=== PATIENT | male | born 1925 | race Caucasian/White ===

== ENCOUNTER 2017-01-25 23:11 | Inpatient (IN) | payer MEDICARE ==
[~2017-01-25] VITALS: Ht 180.3 cm; Wt 102.1 kg
--- NOTE | ~2017-01-25 | CN ---
PATIENT NAME:ROBYN CASAS MEDICAL RECORD: [id number] : [birth year] LOCATION:[facility] ADMIT DATE: 01/26/17 ACCOUNT: [id number] CONSULTING PHYSICIAN: LALITO GILMORE MD REFERRING PHYSICIAN: MARTHA LOU M.D. DATE OF CONSULTATION: 01/26/2017 CONSULT REQUESTING PHYSICIAN: Martha Lou MD. REASON FOR CONSULTATION: Pneumonia, acute mental status changes. HISTORY OF PRESENT ILLNESS: Mr. Casas is an 89-year-old gentleman who was admitted from the long-term with acute mental status changes. On evaluation in the ER, he was found that he has an infiltrate in the left lower lobe and there were also significant leukocytosis. Also, a presumptive diagnosis of urinary tract infection was made. The patient is coughing with white yellow color sputum product He denied any fever or chills, no night sweats. REVIEW OF SYSTEMS: Mainly in the history of present illness. The patient is confused. PAST MEDICAL HISTORY: 1. Sick sinus syndrome, status post pacemaker placement. 2. Coronary artery disease. 3. Hypercholesterolemia. 4. Chronic pain. 5. Peptic ulcer disease. PAST SURGICAL HISTORY: 1. He had a CABG. 2. Status post pacemaker placement. ALLERGIES: SULFA. PRESENT MEDICATIONS: [employer] was reviewed. PERSONAL AND SOCIAL HISTORY: The patient is an ex-smoker, nondrinker. FAMILY HISTORY: Significant for cardiovascular disease. PHYSICAL EXAMINATION: GENERAL: Now, the patient is lying comfortably. He is not in acute distress. VITAL SIGNS: The blood pressure is 129/65, pulse is 69, respiration is 18, temperature 97.3, SPO2 is 99% on 2 liters nasal cannula. HEENT: Conjunctivae are pink. Sclerae nonicteric. NECK: Supple. No JVD. CHEST: Left basal crackles. No wheezing. HEART: Rhythm regular, normal sound, no murmur. ABDOMEN: Soft. Bowel sounds present. No hepatosplenomegaly. RECTAL: Deferred. EXTREMITIES: No cyanosis, no clubbing. There is no pedal edema. SKIN: Warm, normal turgor. CENTRAL NERVOUS SYSTEM: The patient is awake and alert, but the patient is confused. There is no obvious cranial nerve abnormality. He is a bit hard of hearing. CONSULT REPORT [id number] CEDRIC,ROBYN F CHEST RADIOGRAPH: There is left basilar infiltrate. LABORATORY DATA: CBC: The WBC is 11.9, hemoglobin 12, hematocrit 38.1, platelet count 209. Chemistry: Sodium 142, potassium 4.1, BUN is 17, creatinine 1.1. IMPRESSION: 1. Pneumonia, left lower lobe, most possible hospital-acquired pneumonia, Gram-negative rods. The patient is a long-term resident. 2. Chronic hypoxic respiratory failure. 3. Acute mental status changes secondary to metabolic encephalopathy secondary to pneumonia, possible urinary tract infection. 4. History of sick sinus syndrome, status post pacemaker placement. 5. Leukocytosis. 6. Possible urinary tract infection. RECOMMENDATION: 1. Check the UA for culture and sensitivity, start him on Levaquin and cefepime to cover for Gram-negative rods and atypical. 2. Follow up labs and chest radiograph in the morning. 3. Mucinex DM. 4. Acapella q.[address] Lou, once again thank you for involving me in the care of Mr. Casas. TRANSINT:[id number] Voice Confirmation ID: [id number] DOCUMENT ID: [id number] LALITO GILMORE MD CC: MARTHA LOU M.D. [id number] DICTATION DATE: 01/26/171656 MULCHER OPERATOR: 01/27/17 0127 ADM IN [facility] [address] [id number]
[~2017-01-25 23:11] MED LIST: ALEVE220 MG PO; ASPIRIN EC81 M1 PO; BUSPAR10 MG PO; BUSPIRONE; COREG6.25 MG PO; DETROL1 MG PO; K-DUR20 MEQ PO; NEURONTIN 300300 MG PO; NEURONTIN600 MG PO; PEPCID20 MG PO; RESTASIS EYE DR30 EA EACH EYE; TRAZODONE HCL50 MG PO; ULTRAM50 MG PO; ZOCOR40 MG PO; ZOFRAN4 MG PO
[2017-01-25 23:48] LABS: BASOPHILS 0.2 % (0-2); EOSINOPHILS 1.2 % (0-7); HEMATOCRIT 38.1 % (42.0-54.0); IMMATURE GRANULOCYTES 0.3 % (0-5); LYMPHOCYTES 9.9 % (15-50); MCH 28.8 pg (26.0-34.0); MCHC 31.5 g/dL (31.0-37.0); MCV 91.4 fL (80.0-100.0); MEAN PLATELET VOLUME 10.6 fL (7.4-10.4); MONOCYTES 11.4 % (2-11); RBC 4.17 10x6/uL (4.20-6.10); RDW 14.7 % (11.5-14.5); WBC 11.8 10x3/uL (4.8-10.8)
[2017-01-25 23:49] LABS: PLATELET COUNT 209 10x3/uL (130-400)
[2017-01-26 00:01] LABS: ALBUMIN 3.1 g/dL (3.4-5.0); BILIRUBIN - TOTAL 0.37 mg/dL (0.2-1.3); CALCIUM 9.2 mg/dL (8.5-10.1); CARBON DIOXIDE 30.1 mmol/L (21.0-32.0); CREATININE - SERUM 1.1 mg/dL (0.6-1.3); POTASSIUM - SERUM 4.1 mmol/L (3.5-5.1); PROTEIN - SERUM 7.8 g/dL (6.4-8.2)
[2017-01-26 04:00] VITALS: BP 124/56
[2017-01-26 05:34] VITALS: BP 124/56; BMI 31.4
--- NOTE | 2017-01-26 08:03 | NUR ---
PT AOX4 RESP EVEN AND NONLABORED SRX2 CALL LIGHT IN REACH BED AT LOWEST SETTING IV TO LEFT FOREARM PATENT AT THIS TIME WILL CONTINUE TO MONITOR
[2017-01-26 08:31] VITALS: BP 129/65
[2017-01-26 09:52] LABS: BASOPHILS 0.2 % (0-2); EOSINOPHILS 1.8 % (0-7); HEMATOCRIT 35.4 % (42.0-54.0); IMMATURE GRANULOCYTES 0.2 % (0-5); LYMPHOCYTES 9.2 % (15-50); MCH 28.4 pg (26.0-34.0); MCHC 31.1 g/dL (31.0-37.0); MCV 91.5 fL (80.0-100.0); MONOCYTES 9.9 % (2-11); NEUTROPHILS 78.7 % (40-80); PLATELET COUNT 172 10x3/uL (130-400); RBC 3.87 10x6/uL (4.20-6.10); RDW 14.5 % (11.5-14.5)
[2017-01-26 10:02] LABS: WBC 8.2 10x3/uL (4.8-10.8)
[2017-01-26 15:20] VITALS: Ht 180.3 cm; Wt 102.1 kg
[2017-01-26 15:25] VITALS: BP 126/55
--- NOTE | 2017-01-26 19:15 | NUR ---
RECIEVED SHIFT REPORT. PT IS LYING IN BED. PT IS WITH INTERMITTENT CONFUSION. O2 @ 2 PER NASAL CANNULA. IV IS PATENT AND SALINE LOC AT THIS TIME. PT STATES PAIN IS 7/10. PT REQUIRES MINIMAL ASSISTANCE TURNING IN BED FOR COMFORT AND SKIN CARE. NO NEEDS ARE VERBALIZED AT THIS TIME. WILL CONTINUE TO MONITOR. SIDE RAILS ARE UP X 2. BED IS IN LOWEST POSITION. BED ALARM IS ON FOR SAFETY. CALL LIGHT IS WITHIN REACH.
[2017-01-26 20:26] VITALS: BP 135/73
--- NOTE | 2017-01-26 20:59 | NUR ---
SHIFT ASSESSMENT COMPLETED. NIGHT MEDS GIVEN WITH NO PROBLEMS. NO NEEDS ARE VOICED. WILL MONITOR. SIDE RAILS X 2. BED LOW. BED ALARM ON. CALL LIGHT IN REACH.
[2017-01-27] VITALS (7 sets, daily range): BP systolic 111–168; BP diastolic 49–72
[2017-01-27 05:58] LABS: BASOPHILS 0.3 % (0-2); EOSINOPHILS 2.6 % (0-7); HEMATOCRIT 35.5 % (42.0-54.0); HEMOGLOBIN 11.1 g/dL (13.5-17.5); IMMATURE GRANULOCYTES 0.2 % (0-5); LYMPHOCYTES 13.1 % (15-50); MCH 28.6 pg (26.0-34.0); MCHC 31.3 g/dL (31.0-37.0); MCV 91.5 fL (80.0-100.0); MEAN PLATELET VOLUME 10.3 fL (7.4-10.4); MONOCYTES 14.4 % (2-11); NEUTROPHILS 69.4 % (40-80); PLATELET COUNT 195 10x3/uL (130-400); RBC 3.88 10x6/uL (4.20-6.10); RDW 14.6 % (11.5-14.5); WBC 6.2 10x3/uL (4.8-10.8)
[2017-01-27 06:33] LABS: ALBUMIN 2.5 g/dL (3.4-5.0); ALKALINE PHOSPHATASE 62 U/L (46-116); ALT (SGPT) 13 U/L (10-68); CALC OSMOLALITY 282 mosm/kg (275-300); CALCIUM 8.7 mg/dL (8.5-10.1); CARBON DIOXIDE 28.9 mmol/L (21.0-32.0); CHLORIDE - SERUM 104 mmol/L (98-107); GLUCOSE 93 mg/dL (74-106); POTASSIUM - SERUM 4.6 mmol/L (3.5-5.1); SODIUM 142 mmol/L (136-145); UREA NITROGEN 13 mg/dL (7-18); eGFR NON AFRICAN AMERICAN 75 mL/min (90-120)
--- NOTE | 2017-01-27 07:25 | NUR ---
SLEEPING AT THIS TIME. RESPIRATIONS EVEN AND NON LABORED. CALL LIGHT IN REACH, DENIES NEEDS. WILL CONTINUE WITH PLAN OF CARE.
--- NOTE | 2017-01-27 08:33 | NUR ---
SLEEPING, AROUSES TO VOICE, NO DISTRESS NOTED, CALL LIGHT IN REACH, BED LOWEST POSITION, WILL CONTINUE TO MONITOR
--- NOTE | 2017-01-27 19:00 | NUR ---
PATIENT SITTING IN BED WITH LINENS AND GOWN WET. PATIENT CLEANED AND LINENS AND GOWN CHANGED. PATIENT AWAKE AND ALERT BUT SLIGHTLY DISORIENTED. RR EVEN AND UNLABORED. O2 OFF @ THIS TIME. 0 S/S OF DISTRESS. DENIES PAIN AT THIS TIME. IV TO LEFT FA S/L WITH NO REDNESS OR SWELLING. SCD'S OFF. B/A ON. SRX2. BED LOW. DOOR OPEN.
--- NOTE | 2017-01-27 23:00 | NUR ---
ASSESSMENT COMPLETE. NIGHTTIME MEDS GIVEN. LINENS AND GOWN CHANGED AGAIN. NO OTHER NEEDS AT THIS TIME.
[2017-01-28 04:00] VITALS: BP 123/90
--- NOTE | 2017-01-28 04:48 | NUR ---
PATIENT SLEEPING WITH NO DISTRESS NOTED. CALL LIGHT WITHIN REACH.
[2017-01-28 05:57] LABS: BASOPHILS 0.3 % (0-2); EOSINOPHILS 4.5 % (0-7); HEMATOCRIT 35.2 % (42.0-54.0); HEMOGLOBIN 11.1 g/dL (13.5-17.5); IMMATURE GRANULOCYTES 0.2 % (0-5); MCH 28.5 pg (26.0-34.0); MCHC 31.5 g/dL (31.0-37.0); MCV 90.3 fL (80.0-100.0); MEAN PLATELET VOLUME 10.2 fL (7.4-10.4); MONOCYTES 14.6 % (2-11); NEUTROPHILS 63.4 % (40-80); PLATELET COUNT 209 10x3/uL (130-400); RDW 14.3 % (11.5-14.5); WBC 5.8 10x3/uL (4.8-10.8)
[2017-01-28 06:24] LABS: ALBUMIN 2.6 g/dL (3.4-5.0); ALKALINE PHOSPHATASE 59 U/L (46-116); ALT (SGPT) 13 U/L (10-68); BILIRUBIN - TOTAL 0.28 mg/dL (0.2-1.3); CALC OSMOLALITY 278 mosm/kg (275-300); CALCIUM 8.9 mg/dL (8.5-10.1); CARBON DIOXIDE 28.3 mmol/L (21.0-32.0); CHLORIDE - SERUM 105 mmol/L (98-107); CREATININE - SERUM 0.9 mg/dL (0.6-1.3); GLUCOSE 96 mg/dL (74-106); POTASSIUM - SERUM 4.5 mmol/L (3.5-5.1); SODIUM 140 mmol/L (136-145); UREA NITROGEN 12 mg/dL (7-18); eGFR NON AFRICAN AMERICAN 84 mL/min (90-120)
--- NOTE | 2017-01-28 07:38 | NUR ---
ALERT, PLEASANT MOOD, DENIES NEEDS, BED ALARM ON, CALL LIGHT IN REACH, WILL CONTINUE TO MONITOR
[2017-01-28 08:01] VITALS: BP 151/66
[2017-01-28 11:41] VITALS: BP 149/67
--- NOTE | 2017-01-28 13:01 | NUR ---
NUTRITION MONITORING & EVAL CHART REVIEWED, PT VISIT. TOLERATING REG DIET. 25 TO 100% INTAKE RECENT MEALS. WILL CONTINUE TO HONOR FOOD PREFERENCES, MONITOR PO INTAKE. RD FOLLOWING
--- NOTE | 2017-01-28 13:08 | NUR ---
Patient Name: ROBYN STEELE Admission Status: ER Accout number: [id number] Admission Date: 01-27-2017 : 1925 Admission Diagnosis: Attending: DEMETRIUS Current LOS: 1 Anticipated DC Date: 01-30-2017 Planned Disposition: Nursing Facility [facility] Cert Primary Insurance: MEDICARE A & B Discharge Planning Comments: CM CALLED [facility] TO DISCUSS PATIENTS NEEDS AND PLANS. CM COULD NOT REACH CONTACT LISTED AND THERE WAS NO WAY TO LEAVE MSG. NICOLAS AT [facility] STATED PATIENT IS ALERT AND ORIENTED AND USES A WHEELCHAIR MOST DAYS AND WHEELS HIMSELF. PATIENTS PCP IS DR. DILLARD AND PHARMACY IS IN HOUSE AT FACILITY. PATIENTS CONTACT (MATTY) DID NOT ANSWER PHONE AND THERE WAS NO WAY TO LEAVE MESSAGE. PAT[facility] WHEN READY. CM WILL CONTINUE TO FOLLOW PATIENT WITH D/C NEEDS AND PLANS. PCP DR. DILLARD IN HOUSE PHARMACY - [facility] MATTY GARAY (CONTACT) [phone] Pollution Control Engineer: Rosalia Zarco How many steps to enter\exit or inside your home? 0 0 * PCP DR. DILLARD 0 * Pharmacy IN HOUSE AT [facility] 0 * Preadmission Environment [facility] 0 * Facility Name [facility] 0 * ADLs Partial Dependent 0 * Partial ADLs (Assistance needed) Ambulation Bathing Dressing Medication Management Toileting Transfers 0 * Equipment Wheelchair 0 * Other Equipment [facility] HAS NEEDED EQUIPMENT 0 * List name and contact numbers for known caregivers / representatives who currently or will assist patient after discharge: MATTY GARAY (A FRIEND OF PATIENTS ) [phone] 0 * Community resources currently utilized None 0 * Additional services required to return to the preadmission environment? Yes 0 * Can the patient safely return to the preadmission environment? Yes 0 * Has this patient been hospitalized within the prior 30 days at any hospital? No 0 Grand Total: 0
--- NOTE | 2017-01-28 15:20 | NUR ---
PATIENT IS RESTING QUIETLY WITH EYES CLOSED. NO SIGNS OF DISTRESS NOTED. BED IN LOWEST POSITION, CALL LIGHT IN REACH. BED RAILS UP X'S 2.
--- NOTE | 2017-01-28 16:44 | NUR ---
ATTEMPTED STARIGHT CATH FOR UA, COULD NOT GO PASSED THE PROSTATE, PLACED A CONDOM CATH ON TO COLLECT SAMPLE
[2017-01-28 16:52] VITALS: BP 155/69
[2017-01-28 18:57] LABS: APPEARANCE HAZY (CLEAR); BILIRUBIN NEGATIVE (NEGATIVE); COLOR YELLOW (YELLOW); GLUCOSE NEGATIVE (NEGATIVE); KETONE NEGATIVE (NEGATIVE); LEUKOCYTE ESTERASE 1+ (NEGATIVE); NITRITE NEGATIVE (NEGATIVE); PROTEIN NEGATIVE (NEGATIVE); UROBILINOGEN NORMAL (NORMAL)
[2017-01-28 18:58] LABS: BACTERIA MODERATE /hpf (NONE SEEN); RED CELLS - URINE 0-5 /hpf (0-5)
[2017-01-28 20:00] VITALS: BP 134/77
--- NOTE | 2017-01-28 20:07 | NUR ---
PATIENT RESTING IN BED AND DENIES NEEDS AT THIS TIME. BED IN LOWEST POSITION, CALL LIGHT WITHIN REACH, AND BED ALARM ON. ENCOURAGED PATIENT TO CALL IF HE HAS NEEDS.
--- NOTE | 2017-01-29 05:26 | NUR ---
PATIENT RESTING IN BED CLEAN AND DRY AND DENIES NEEDS AT THIS TIME. BED IN LOWEST POSITION, CALL LIGHT WITHIN REACH, AND BED ALARM ON. PATIENT DENIES NEEDS AT THIS TIME. ENCOURAGED PATIENT TO CALL IF HE HAS NEEDS.
[2017-01-29 06:19] LABS: BASOPHILS 0.2 % (0-2); EOSINOPHILS 4.1 % (0-7); HEMATOCRIT 35.9 % (42.0-54.0); HEMOGLOBIN 11.3 g/dL (13.5-17.5); IMMATURE GRANULOCYTES 0.2 % (0-5); LYMPHOCYTES 17.6 % (15-50); MCH 28.2 pg (26.0-34.0); MCHC 31.5 g/dL (31.0-37.0); MCV 89.5 fL (80.0-100.0); MEAN PLATELET VOLUME 9.5 fL (7.4-10.4); MONOCYTES 12.8 % (2-11); NEUTROPHILS 65.1 % (40-80); PLATELET COUNT 197 10x3/uL (130-400); RBC 4.01 10x6/uL (4.20-6.10); WBC 5.6 10x3/uL (4.8-10.8)
[2017-01-29 06:56] LABS: ALBUMIN 2.7 g/dL (3.4-5.0); ALKALINE PHOSPHATASE 63 U/L (46-116); ALT (SGPT) 13 U/L (10-68); BILIRUBIN - TOTAL 0.39 mg/dL (0.2-1.3); CALC OSMOLALITY 275 mosm/kg (275-300); CARBON DIOXIDE 27.9 mmol/L (21.0-32.0); CHLORIDE - SERUM 103 mmol/L (98-107); GLUCOSE 93 mg/dL (74-106); POTASSIUM - SERUM 4.7 mmol/L (3.5-5.1); PROTEIN - SERUM 7.1 g/dL (6.4-8.2); SODIUM 138 mmol/L (136-145); UREA NITROGEN 13 mg/dL (7-18); eGFR NON AFRICAN AMERICAN 75 mL/min (90-120)
--- NOTE | 2017-01-29 07:00 | NUR ---
PT WAS RECEIVED IN BED AT THE BEGINNING OF THIS SHIFT AWAKE AND ORIENTED TO SELF ONLY. NO SIGNS OF ANY DISCOMFORT OR DISTRESS FOUND. PT. DENIED ANY NEEDS AND/OR CONCERNS. BED ALARM DEVICE ON. LEFT FOREARM HAS SL THAT IS PATENT. WILL BE MONITORING HIM AND ASSISTING PRN WITH ADL'S. VITAL SIGNS; TEMP. 98.0, PULSE 62, RESP. 17, B/P 138/57, 02SAT. 95%.
[2017-01-29 08:21] VITALS: BP 138/57
[2017-01-29 11:35] VITALS: BP 101/67
--- NOTE | 2017-01-29 12:54 | NUR ---
PT IS HAVING AN UNEVENTFUL DAY TODAY. 02 PER NC GOING AT 2L/MIN. WILL CONTINUE TO MONITOR. CALL LIGHT IS IN REACH.
--- NOTE | 2017-01-29 18:19 | NUR ---
PT CONTINUES TO REST COMFORTABLY IN BED. CALL LIGHT IS IN REACH. PT. CONTINUES TO BE ALERT TO NAME. CONTINUING TO MONITOR.
[2017-01-29 20:00] VITALS: BP 115/67
[2017-01-30] VITALS: BP 119/63
--- NOTE | 2017-01-30 00:02 | NUR ---
2000)REC'D. IN BED ALERT BUT REMAINS CONFUSED.TO PLACE AND TIME.REQUESTING TO TALK TO CALLED TO TALK TO PT.STATES FEELS BETTER AFTER TALKING TO WILL CONTINUE TO MONITOR FOR ANY CHGES. AND FOLLOW CURRENT PLAN OF CARE.
--- NOTE | 2017-01-30 02:53 | NUR ---
PT IS AWAKE IN BED WITH NO DISTRESS NOTED. EASY RESPIRATIONS WITH [address] PER N/C. HE REQUESTED HIS IV SITE BE TAPPED BUT THE CANNULA WAS OUT AND ALL OF IT WAS REMOVED. NURSE INFORMED OF IV SITE BEING OUT. THE BED IS LOW, RAILS UP X'S 2 WITH THE CALL LIGHT AT HAND.
[2017-01-30 04:00] VITALS: BP 119/78
[2017-01-30 07:07] LABS: BASOPHILS 0.3 % (0-2); EOSINOPHILS 5.5 % (0-7); HEMATOCRIT 36.7 % (42.0-54.0); HEMOGLOBIN 11.7 g/dL (13.5-17.5); IMMATURE GRANULOCYTES 0.3 % (0-5); LYMPHOCYTES 15.7 % (15-50); MCH 28.6 pg (26.0-34.0); MCHC 31.9 g/dL (31.0-37.0); MCV 89.7 fL (80.0-100.0); MEAN PLATELET VOLUME 9.9 fL (7.4-10.4); MONOCYTES 11.1 % (2-11); NEUTROPHILS 67.1 % (40-80); PLATELET COUNT 211 10x3/uL (130-400); RBC 4.09 10x6/uL (4.20-6.10); RDW 14.1 % (11.5-14.5); WBC 6.6 10x3/uL (4.8-10.8)
[2017-01-30 07:32] LABS: ALBUMIN 2.9 g/dL (3.4-5.0); ANION GAP 10.6 mmol/L (8-16); BILIRUBIN - TOTAL 0.37 mg/dL (0.2-1.3); CARBON DIOXIDE 28.1 mmol/L (21.0-32.0); CREATININE - SERUM 1.2 mg/dL (0.6-1.3); POTASSIUM - SERUM 4.7 mmol/L (3.5-5.1); PROTEIN - SERUM 6.8 g/dL (6.4-8.2)
--- NOTE | 2017-01-30 07:50 | NUR ---
Verbalized name and , oxygen in place, respirations easy. Incontinent of urine, cleansed up and repositioned in bed. No distress assessed. Iv sited to right forearm 22g times one stick.
[2017-01-30 10:09] VITALS: BP 114/70
[2017-01-30 11:47] VITALS: BP 110/66
[2017-01-30 16:38] VITALS: BP 123/65
[2017-01-30 19:00] VITALS: BP 119/69
[2017-01-31] VITALS: BP 114/63
--- NOTE | 2017-01-31 01:02 | NUR ---
PT IS ASLEEP WITH THE O2 OFF AT THIS TIME. RESPIRATIONS ARE EASY AND THERE IS NO DISTRESS NOTED. THE BED IS LOW, RAILS UP X'S 2 WITH THE CALL LIGHT AT HAND.
[2017-01-31 04:00] VITALS: BP 132/76
[2017-01-31 06:55] LABS: BASOPHILS 0.1 % (0-2); EOSINOPHILS 5.5 % (0-7); HEMATOCRIT 36.1 % (42.0-54.0); HEMOGLOBIN 11.7 g/dL (13.5-17.5); IMMATURE GRANULOCYTES 0.2 % (0-5); LYMPHOCYTES 13.5 % (15-50); MCHC 32.4 g/dL (31.0-37.0); MCV 89.4 fL (80.0-100.0); MEAN PLATELET VOLUME 9.8 fL (7.4-10.4); MONOCYTES 11.5 % (2-11); NEUTROPHILS 69.2 % (40-80); PLATELET COUNT 221 10x3/uL (130-400); RBC 4.04 10x6/uL (4.20-6.10); RDW 14.3 % (11.5-14.5); WBC 8.2 10x3/uL (4.8-10.8)
[2017-01-31 07:26] LABS: ALBUMIN 2.7 g/dL (3.4-5.0); ANION GAP 10.7 mmol/L (8-16); BILIRUBIN - TOTAL 0.42 mg/dL (0.2-1.3); CALCIUM 9.1 mg/dL (8.5-10.1); CARBON DIOXIDE 27.7 mmol/L (21.0-32.0); CREATININE - SERUM 1.1 mg/dL (0.6-1.3); POTASSIUM - SERUM 4.4 mmol/L (3.5-5.1)
[2017-01-31 09:00] VITALS: BP 116/62
--- NOTE | 2017-01-31 12:12 | NUR ---
SPOKE WITH MATTY, GENERAL CAR SUPERVISOR YARD, ABOUT GETTING A PUBLIC MESSAGE SERVICE SUPERVISOR FOR PT. SHE STATED, "WE HAVE A MONITOR DOWN AND UNLESS THE PT IS HAVING CHEST PAIN THEY DON'T GET ONE."
--- NOTE | 2017-01-31 14:00 | NUR ---
INCONTINENT OF URINE AND STOOL. SKIN CARE PER STAFF. LINENS CHANGED. LUNGS ARE CLEAR BUT DIMINISHED THROUGHOUT. DENIES NEEDS.
--- NOTE | 2017-01-31 15:46 | NUR ---
COMPLETE LINEN CHANGE AND PARTIAL BED BATH PROVIDED DUE TO INCONTINENCE OF URINE. LARGE AMOUNT OF ORANGE COLORED URINE VOIDED. NO ODOR DETECTED. BED LOW, CALL LIGHT IN REACH, DENIES NEEDS. CPOC.
[2017-01-31 16:17] VITALS: BP 120/62
[2017-01-31 20:00] VITALS: BP 108/64
--- NOTE | 2017-01-31 21:06 | NUR ---
PATIENT RESTING IN BED. ALERT AND ORIENTED. NO SIGNS OF DISTRESS NOTED. SCHEDULED MEDS GIVEN. SHIFT ASSESSMENT COMPLETED. DENIES ANY NEEDS AT THIS TIME. BED LOW. CALL LIGHT IN REACH
--- NOTE | 2017-01-31 21:35 | NUR ---
PATIENT RESTING IN SEMI-FOWLERS POSITION AND DENIES NEEDS AT THIS TIME. BED IN LOWEST POSITION, CALL LIGHT WITHIN REACH, AND BED ALARM ON. ENCOURAGED THE PATIENT TO CALL IF HE HAS NEEDS.
[2017-02-01] VITALS (7 sets, daily range): BP systolic 103–150; BP diastolic 52–77
--- NOTE | 2017-02-01 16:00 | NUR ---
LYING IN BED WITH HOB AT 30 DEGREES. RESPIRATIONS EVEN AND NON LABORED. CALL LIGHT IN REACH, WILL CONTINUE WITH PLAN OF CARE.
--- NOTE | 2017-02-01 18:14 | NUR ---
ON PHONE. PROVIDED PT UPDATE ON LOOKING FOR PLACEMENT WITH CM AND PT'S CONFUSION.
--- NOTE | 2017-02-01 20:07 | NUR ---
PATIENT RESTING IN BED. ALERT CONFUSED AT TIMES. C/O CRAMP TO LEFT THIGH. ATTEMPTED REPOSITIONING. SOMEWHAT EFFECTIVE. SCHEDULED MEDS GIVEN. SHIFT ASSESSMENT COMPLETED. NO NEEDS VOICED AT THIS TIME. BED LOW. CALL LIGHT IN REACH
[2017-02-02] VITALS: BP 122/68
--- NOTE | 2017-02-02 01:15 | NUR ---
RESTING WITH EYES CLOSED, RESP WITH EASE, ALARM AND FALL PRECAUTIONS IN PLACE, CL IN REACH
[2017-02-02 04:00] VITALS: BP 135/78
--- NOTE | 2017-02-02 07:53 | NUR ---
PT AOX1 RESP EVEN AND NONLABORED IV TO LEFT FOREARM PATENT AND INTACT. PT DENIES NEEDS AT THIS TIME SRX2 BED AT LOWEST SETTING WILL CONTINUE TO MONITOR
[2017-02-02 08:22] VITALS: BP 123/66
[2017-02-02 09:48] LABS: BASOPHILS 0.2 % (0-2); EOSINOPHILS 4.4 % (0-7); HEMATOCRIT 38.1 % (42.0-54.0); HEMOGLOBIN 12.2 g/dL (13.5-17.5); IMMATURE GRANULOCYTES 0.4 % (0-5); MCH 28.9 pg (26.0-34.0); MCV 90.3 fL (80.0-100.0); MEAN PLATELET VOLUME 9.5 fL (7.4-10.4); MONOCYTES 10.3 % (2-11); NEUTROPHILS 68.7 % (40-80); PLATELET COUNT 220 10x3/uL (130-400); RBC 4.22 10x6/uL (4.20-6.10); RDW 14.5 % (11.5-14.5)
[2017-02-02 10:09] LABS: ALBUMIN 2.9 g/dL (3.4-5.0); ANION GAP 12.7 mmol/L (8-16); BILIRUBIN - TOTAL 0.28 mg/dL (0.2-1.3); CALCIUM 9.1 mg/dL (8.5-10.1); CARBON DIOXIDE 27.8 mmol/L (21.0-32.0); CREATININE - SERUM 1.2 mg/dL (0.6-1.3); POTASSIUM - SERUM 4.5 mmol/L (3.5-5.1); PROTEIN - SERUM 7.5 g/dL (6.4-8.2)
[2017-02-02] MEDS ORDERED: MUCINEX DM ER1 EAC1 PO (10:30)
[2017-02-02] MEDS ORDERED: FLORAJEN3 CAPS460 MG PO (10:30)
[2017-02-02] MEDS ORDERED: IPRAT-ALBUT 0.5-3 ML UPD ×2 (10:33)
--- NOTE | 2017-02-02 11:28 | NUR ---
CM REASSESSMENT NOTE: PATIENT IS D/C BACK TO [facility] TO A SKILLED BED BY FACILITY BED.
[2017-02-02 11:50] VITALS: BP 128/78
--- NOTE | 2017-02-02 13:14 | NUR ---
PT REPORT CALLED TO KORIN GREGG AT THE FACILITY AT THIS TIME
--- NOTE | 2017-02-02 14:00 | NUR ---
PT IV DISCONTINUED WITH CATHETER INTACT AT THIS TIME
--- NOTE | 2017-02-02 14:05 | NUR ---
PT DISCHARGED VIA WHEELCHAIR VIA NURSING FACILITY [facility] AT THIS TIME
== END 2017-02-02 14:16 | DRG 177 ==
LOC: D.ER 23:11 → D.MS 01-26 02:10 → OBSVTIME 01-26 02:10 → D.MS 01-26 02:10
PROVIDERS: Family Medicine; Family Medicine Adult Medicine; ADMIT Family Medicine
DX: J15.6 Pneumonia due to other Gram-negative bacteria (principal); G93.41 Metabolic encephalopathy; N39.0 Urinary tract infection, site not specified; J96.11 Chronic respiratory failure with hypoxia; Y95 Nosocomial condition; Z95.0 Presence of cardiac pacemaker; E78.00 Pure hypercholesterolemia, unspecified; G89.29 Other chronic pain; I25.10 Atherosclerotic heart disease of native coronary artery without angina pectoris; K21.9 Gastro-esophageal reflux disease without esophagitis; D64.9 Anemia, unspecified